=== PATIENT | male | born 1960 | race Caucasian/White ===

== ENCOUNTER 2025-01-01 07:19 | Day surgery (SDC) | payer BC, SELFPAY ==
[2024-12-30 16:05] VITALS: BMI 29.5
[2025-01-01 07:47] VITALS: BP 128/60; PULSE 75; RESP 18; TEMP 36.2; O2SAT 97
[2025-01-01] MEDS: LACTATED RINGERS 1000ML 1,000 ML 25 ML IV (07:59)
--- NOTE | 2025-01-01 08:29 | EXP.ANES.CKL ---
[facility] Disclaimer: The information contained in this section may have been updated after the patient was seen, as this information can be updated by other users. Medical History Stomach ulcer Pancreatitis Kidney disease Irregular heart beat Hemorrhoids GERD (gastroesophageal reflux disease) Esophageal dysmotility Back pain Surgical History No history of previous surgery Family History (Updated 12/30/24 @ 16:03 by Yanelis Prabhakar RN) Other No significant family history Social History (Updated 12/30/24 @ 16:04 by Yanelis Prabhakar RN) Smoking Status: Never smoker alcohol intake: never substance use type: denies use current occupational status: retired Travel in the last 8 weeks?: None Have you lived/traveled outside [place] in past 30 days?: No Contact w/someone who lives/traveled outside US past 30 days?: No Exposure to someone with infectious disease in past 14 days?: No Do you have a fever (greater than 100.4 F or 38 C)?: No Have you tested positive for COVID-19?: No Exposed to someone with COVID-19 in past 14 days?: No Do you have a sore throat?: No Do you have a cough?: No Do you have any weakness?: No Do you have any diarrhea?: No Are you experiencing any unusual bleeding?: No Do you have any muscle aches/pain?: No Do you have any abdominal pain?: No Are you experiencing loss of taste or smell?: No [facility] Anesthesia Checklist Patient Identification Patient Identification: Arm Band Structural Data Admitted From: Home Planned Operative Procedure/s: Colonoscopy Consent for Planned Operative Procedure(s) Verified: Yes Verified Documents: Surgical Consent and History and Physical NPO Status Verified Time NPO: 04:15 (finished prep) Additional verifications Anesthesia Reactions: No Airway Assessment Mallampati Score:: Class II C-Spine Mobility Assessed: Yes TMJ Mobility Assessed: Yes Dentition: Good Dentition Neurological Assessment Level of Consciousness: Awake, Alert and Appropriate Anesthesia Plan Anesthesia Risk discussed: Yes Anesthesia Plan: Verified ASA Class: II Anesthesia Type: MAC
--- NOTE | 2025-01-01 08:53 | EXP.HP ---
History of Present Illness *Admission Date: 01/01/25 *Reason for visit:: Screening for colon cancer *History of present illness: Mr. Subramanian is a 64-year-old gentleman who is here for screening colonoscopy. His last colonoscopy was approximately 10 years ago. The examination is deemed medically necessary for screening colonoscopy. The patient has been seen, interviewed and examined prior to the procedure by both myself and the anesthesia provider. [facility] Disclaimer: The information contained in this section may have been updated after the patient was seen, as this information can be updated by other users. Medical History Stomach ulcer Pancreatitis Kidney disease Irregular heart beat Hemorrhoids GERD (gastroesophageal reflux disease) Esophageal dysmotility Back pain Surgical History No history of previous surgery Family History (Updated 12/30/24 @ 16:03 by Yanelis Prabhakar RN) Other No significant family history Social History (Updated 12/30/24 @ 16:04 by Yanelis Prabhakar RN) Smoking Status: Never smoker alcohol intake: never substance use type: denies use current occupational status: retired Travel in the last 8 weeks?: None Have you lived/traveled outside [place] in past 30 days?: No Contact w/someone who lives/traveled outside [place] past 30 days?: No Exposure to someone with infectious disease in past 14 days?: No Do you have a fever (greater than 100.4 F or 38 C)?: No Have you tested positive for COVID-19?: No Exposed to someone with COVID-19 in past 14 days?: No Do you have a sore throat?: No Do you have a cough?: No Do you have any weakness?: No Do you have any diarrhea?: No Are you experiencing any unusual bleeding?: No Do you have any muscle aches/pain?: No Do you have any abdominal pain?: No Are you experiencing loss of taste or smell?: No Review of Systems Review of Systems Review of systems (narrative): Negative *Cardiovascular Comments: Negative *Gastrointestinal Comments: Negative *Genitourinary Comments: Negative *Musculoskeletal Comments: Negative *Neurologic Comments: Negative Meds Home Medications and Allergies Home Medications ?Medication ?Instructions ?Recorded ?Confirmed ?Type cetirizine 10 mg capsule (Zyrtec) 10 mg PO DAILY PRN per md 09/30/24 01/01/25 History lisinopril 10 mg tablet 10 mg PO DAILY 09/30/24 01/01/25 History pantoprazole 40 mg tablet,delayed 40 mg PO ONCE 09/30/24 01/01/25 History release polyethylene glycol 3350 17 17 g PO DAILY 09/30/24 01/01/25 History gram/dose oral powder (Miralax) psyllium seed (sugar) oral powder 1 tbsp PO DAILY 09/30/24 01/01/25 History (Metamucil (sugar) oral powder) New Prescriptions to Start Prescriptions: Allergies Allergy/AdvReac Type Severity Reaction Status Date / Time No Known Allergies Allergy Verified 09/30/24 14:05 Exam Data for Last 24 hours Vital signs and Labs for Last 24 Hours: Temp Pulse Resp BP Pulse Ox O2 Del Method 97.1 F L 75 18 128/60 97 Room Air 01/01/25 07:47 01/01/25 07:47 01/01/25 07:47 01/01/25 07:47 01/01/25 07:47 01/01/25 07:47 I & O for Last 24 hours: Intake & Output 12/29/24 12/30/24 12/31/24 01/01/25 23:59 23:59 23:59 23:59 Weight 230 lb *Routine HEENT Exam Head: Present normocephalic Eye: Present EOMI and PERRL ENT: Present mucous membranes moist *Routine Neck Exam Neck: Present supple *Routine Respiratory Exam Respiratory: Present CTA bilaterally *Routine Cardiovascular Exam Cardiovascular: Present RRR *Routine Abdominal Exam Abdominal: Present soft and normoactive bowel sounds; Absent tenderness *Routine Rectal Exam Rectal:: deferred *Routine Genitalia Exam Genitalia:: deferred *Routine Extremities Exam Extremities: Absent cyanosis, clubbing or edema *Routine Skin Exam Skin: Present warm; Absent rash *Routine Neurological Exam Neurological: Present alert and oriented X3 Assessment and Plan *Assessment and plan (1) Personal history of colon polyps, unspecified: Status: Acute Category: Medical Code(s): Z86.0100 - Personal history of colon polyps, unspecified (2) Screening for colon cancer: Status: Acute Category: Medical Code(s): Z12.11 - Encounter for screening for malignant neoplasm of colon Plan A/P: 1. Screening for colon cancer with prior history of colon polyps (unspecified) is the preprocedural diagnosis. The patient will be anesthetized/sedated using MAC sedation. The patient has been seen and examined. Cardiac and lung assessment prior to the examination is stable. Proceed with planned screening/surveillance colonoscopy.
--- NOTE | 2025-01-01 09:06 | P.PCN_ITS ---
[facility] Procedure Note Date: 01/01/25 Time: : Procedure Note:: Colonoscopy Procedure Report: Colonoscopy with cold snare polypectomy Endoscopist: Joey Stoner II, MD Referring physician: Arslan Biggs MD, [address] [place] [address], [address] [place] [address] Date of Procedure: January 01, 2025 Equipment: Olympus 190 variable stiffness pediatric colonoscope Sedation: MAC sedation Indication: Mr. Subramanian is a 64-year-old gentleman who is here for surveillance colonoscopy secondary to a personal history of adenomatous colon polyps. The patient had a colonoscopy approximately 15 years ago (Dr. Bateman) and had polyps. His last colonoscopy in [address] Aiden Padron was normal. He did struggle with some IBS constipation but has significantly improved with combined fiber bowel regimen (MiraLAX plus Metamucil) and dietary measures. He reports no abdominal pain, weight loss, change in his bowel habits or rectal bleeding. He reports no family history of colon cancer. Procedure: Prior to the procedure, a history and physical exam was performed, and patient's medications and allergies were reviewed. The risks, benefits and alternatives of the sedation and procedure were discussed with the patient. All questions were answered and informed consent was obtained. The patient was brought to the procedure room. Patient identification and proposed procedure were verified by the physician and the nurse. The patient was placed in a left lateral decubitus position and the scope was passed under direct vision. Throughout the procedure, the patient's blood pressure, pulse, and oxygen saturations were monitored continuously. The colonoscopy was accomplished without difficulty. The patient tolerated the procedure well. Findings: On digital rectal examination there was normal rectal tone. There were no external hemorrhoids. The prostate was 2+, mildly firm with some mild firmness along the left lateral margin of the prostate. The colonoscope was introduced through the anal canal to the rectum and advanced to the cecum. The ileocecal valve and appendiceal orifice were identified. The scope was advanced a short distance into the ileum which appeared grossly normal. The scope was then withdrawn into the colon. There were 6 polyps (ascending x 3 (3, 4 and 5 mm), transverse x 1 (6 mm) and descending x 2 (4 and 5 mm)). These were all removed via cold snare polypectomy. The remaining cecum, ascending and transverse colon and mucosa were grossly normal. There were mildly scattered diverticuli throughout the descending and sigmoid colon (LEFT colon). The rectum itself was normal. Upon retroflexion within the rectum there were grade 2 internal hemorrhoids. The preparation was excellent throughout with [place] Preparation Score of 9. The cecal time was 14 minutes. Impression: 1. Diminutive colonic polyps x 6 2. Mild left-sided diverticulosis 3. Grade 2 internal hemorrhoids Plan: I will follow-up the polyp histology and recommend repeat surveillance colonoscopy again in 3 years based upon the pathology. I would encourage continuation of the fiber bowel regimen (combined MiraLAX plus Metamucil) daily.
[2025-01-01 09:30] VITALS: BP 118/77; PULSE 75; RESP 16; TEMP 36.1; O2SAT 97
[2025-01-01 09:40] VITALS: BP 107/76; PULSE 69; RESP 18; O2SAT 98
[2025-01-01 09:50] VITALS: BP 115/71; PULSE 71; RESP 16; O2SAT 98
[2025-01-01 10:00] VITALS: BP 129/75; PULSE 76; RESP 16; O2SAT 99
== END 2025-01-01 10:00 | disposition home or self-care (01) ==
PROVIDERS: PCP Plastic Surgery Surgery of the Hand; Visit Provider Internal Medicine Gastroenterology
PROC: 0DJD8ZZ Inspection of Lower Intestinal Tract, Via Natural or Artificial Opening Endoscopic (ICD-10-PCS; CPT 45378; principal; 2025-01-01 09:00)
DX: Z12.11 Encounter for screening for malignant neoplasm of colon (principal); D12.2 Benign neoplasm of ascending colon; D12.4 Benign neoplasm of descending colon; D12.3 Benign neoplasm of transverse colon; K57.30 Diverticulosis of large intestine without perforation or abscess without bleeding; K64.1 Second degree hemorrhoids; K58.1 Irritable bowel syndrome with constipation; K21.9 Gastro-esophageal reflux disease without esophagitis; Z86.0100 Personal history of colon polyps, unspecified; Z79.899 Other long term (current) drug therapy; Z86.0101 Personal history of adenomatous and serrated colon polyps
CPT/HCPCS: 45385; J7120